=== PATIENT | female | born 1955 | race African-American/Black ===

== ENCOUNTER 2020-04-26 21:47 | Inpatient (IN) | payer MEDICAID ==
[~2020-04-26] VITALS: Ht 167.6 cm; Wt 76.2 kg
[2020-04-26] MEDS ORDERED: KETOROLAC 30MG/ML VIAL IV STA (22:41)
[2020-04-26] MEDS ORDERED: SODIUM CHLORIDE 0.9% 1,000 ML IV ONE (22:41)
[2020-04-26] MEDS ORDERED: ONDANSETRON HCL 4MG/2ML INJ IV STA (22:41)
[2020-04-26 23:26] LABS: CHLORIDE 99 mEq/L (98-107)
[2020-04-26 23:27] LABS: HEMATOCRIT. 38.9 % (36.0-48.0); HEMOGLOBIN. 12.8 g/dL (12.0-16.0); MEAN CORPUSCULAR HEMOGLOBIN 29.4 pg (28.0-32.0); MEAN CORPUSCULAR VOLUME 89.5 fL (81.0-99.0); MEAN PLATELET VOLUME 12.5 fl (7.4-10.4); PLATELET 229 x1000/uL (130-400); RED BLOOD CELL COUNT 4.35 mill/uL (4.2-5.4); RED CELL DISTRIBUTION WIDTH 14.5 % (11.6-14.6)
[2020-04-26 23:30] LABS: ETHANOL BLOOD < 10 mg/dL; INR 1.1; PROTHROMBIN TIME 11.2 sec (9.6-11.0)
[2020-04-27] MEDS ORDERED: POTASSIUM CHLORIDE 20MEQ TABLET SR PO ONE (00:30)
[2020-04-27] MEDS ORDERED: POTASSIUM CHLORIDE INJ 40 MEQ in DEXT 5% WATER 500 ML IV ONE (00:30)
[2020-04-27 01:59] LABS: PLATELET ESTIMATE NORMAL
[2020-04-27 06:19] LABS: CLARITY URINE TURBID (CLEAR); COLOR URINE DARK YELLOW (YELLOW); KETONES URINE TRACE (NEGATIVE); LEUKOCYTE ESTERASE URINE 3+ (NEGATIVE); NITRITE URINE NEGATIVE (NEGATIVE); OCCULT BLOOD URINE TRACE (NEGATIVE); PH URINE 5.5 (4.5-8.0); PROTEIN URINE 1+ (NEGATIVE); SPECIFIC GRAVITY URINE 1.014 (1.005-1.030)
[2020-04-27 06:31] LABS: *AMPHETAMINES SCREEN URINE NEGATIVE (NEGATIVE); *BARBITURATES SCREEN URINE NEGATIVE (NEGATIVE); *BENZODIAZEPINES SCREEN URINE NEGATIVE (NEGATIVE); *COCAINE SCREEN URINE NEGATIVE (NEGATIVE); METHADONE URINE SCREEN NEGATIVE (NEGATIVE); OPIATES URINE SCREEN NEGATIVE (NEGATIVE)
[2020-04-27 06:32] LABS: CANNABINOID URINE SCREEN NEGATIVE (NEGATIVE); PHENCYCLIDINE URINE SCREEN NEGATIVE (NEGATIVE)
[2020-04-27 08:00] VITALS: BP 132/74
[2020-04-27 08:30] VITALS: BP 132/74
[2020-04-27] MEDS ORDERED: DIPHENHYDRAMINE 50MG/ML VIAL IV PRN (08:45)
[2020-04-27] MEDS ORDERED: CEFTRIAXONE 1 G PREMIX 50 ML IV SCH (08:45)
[2020-04-27] MEDS ORDERED: ONDANSETRON HCL 4MG/2ML INJ IV PRN (08:45)
[2020-04-27] MEDS ORDERED: IPRATROPIUM/ALBUTEROL 0.5-3(2.5)MG/3ML NEB HHN PRN (08:45)
[2020-04-27] MEDS ORDERED: ACETAMINOPHEN 650MG SUPP PR PRN (08:45)
[2020-04-27] MEDS: CEFTRIAXONE 1,000 MG in DEXTROSE 5% WATER 50 ML IV SCH (10:18)
[2020-04-27] MEDS: MORPHINE SULFATE 2 MG/ML CPJ (NOT FOR IM USE) IV PRN ×2 (10:19→15:54)
[2020-04-27] MEDS: SODIUM CHLORIDE 0.9% 1,000 ML IV SCH ×2 (10:19→23:23)
[2020-04-27 10:43] LABS: PHOSPHORUS 2.3 mg/dL (2.5-4.9)
[2020-04-27 12:00] VITALS: BP 121/83
[2020-04-27] MEDS ORDERED: MAGNESIUM 2 G PREMIX 50 ML IV SCH (12:00)
[2020-04-27] MEDS ORDERED: SORBITOL 70% SOLN 30ML PO SCH ×2 (15:30→20:00)
[2020-04-27] MEDS ORDERED: MAGNESIUM/ALUMINUM HYDROXIDE/SIMETHICONE 30ML UDC PO PRN (15:30)
[2020-04-27 16:00] VITALS: BP 110/71
[2020-04-27] MEDS ORDERED: DEXTROSE 50% WATER 50ML SYRINGE IV PRN (18:15)
[2020-04-27] MEDS: INSULIN LISPRO 100 UNITS/ML SUBCUT SCH ×2 (18:30→20:20)
[2020-04-27] MEDS: BLOOD SUGAR DIAGNOSTIC STRIP TEST SCH ×2 (18:31→20:20)
[2020-04-27 20:00] VITALS: BP 117/63
[2020-04-27 21:18] LABS: TOTAL IRON BINDING CAPACITY 393 ug/dL (250-450)
[2020-04-28] VITALS: BP 141/63
[2020-04-28 04:00] VITALS: BP 119/65
[2020-04-28 06:48] LABS: BASOPHILS % 0.7 % (0.0-2.0); EOSINOPHILS % 0.5 % (0.0-5.0); HEMATOCRIT. 40.9 % (36.0-48.0); HEMOGLOBIN. 13.4 g/dL (12.0-16.0); LYMPHOCYTES % 9.1 % (20.0-50.0); MEAN CORPUSCULAR HEMOGLOBIN 29.3 pg (28.0-32.0); MEAN CORPUSCULAR VOLUME 89.7 fL (81.0-99.0); MEAN PLATELET VOLUME 11.3 fl (7.4-10.4); MONOCYTES % 4.8 % (2.0-8.0); NEUTROPHILS % 84.9 % (40.0-76.0); PLATELET 109 x1000/uL (130-400); RED BLOOD CELL COUNT 4.56 mill/uL (4.2-5.4); RED CELL DISTRIBUTION WIDTH 14.5 % (11.6-14.6)
[2020-04-28] MEDS: BLOOD SUGAR DIAGNOSTIC STRIP TEST SCH ×4 (07:01→21:00)
[2020-04-28 07:50] LABS: CHLORIDE 104 mEq/L (98-107)
[2020-04-28 07:58] LABS: LDL CHOLESTEROL 111 mg/dL (5-100)
[2020-04-28 08:00] VITALS: BP 129/75
[2020-04-28 08:00] LABS: HDL CHOLESTEROL 41 mg/dL (40-59)
[2020-04-28] MEDS ORDERED: NA PHOS,M-B/NA PHOS,DI-BA ENEMA 118ML PR SCH (08:00)
[2020-04-28] MEDS: INSULIN LISPRO 100 UNITS/ML SUBCUT SCH ×4 (08:18→21:01)
[2020-04-28] MEDS ORDERED: POTASSIUM CHLORIDE 20MEQ TABLET SR PO SCH (09:00)
[2020-04-28] MEDS: CEFTRIAXONE 1,000 MG in DEXTROSE 5% WATER 50 ML IV SCH (09:36)
[2020-04-28] MEDS ORDERED: KCL 20MEQ/100ML PREMIX 100 ML IV SCH (10:00)
[2020-04-28] MEDS: SODIUM CHLORIDE 0.9% 1,000 ML IV SCH (11:07)
[2020-04-28 12:00] VITALS: BP 134/62
[2020-04-28] MEDS: IRON SUCROSE COMPLEX 100 MG/5 ML ML IV SCH (14:08)
[2020-04-28] MEDS ORDERED: POTASSIUM PHOS,M-BASIC-D-BASIC 20 MMOL in DEXT 5% WATER 243.3333 ML IV NR (15:00)
[2020-04-28 16:00] VITALS: BP_SYST 147; BP_DIAS 69; BP_DIAS 78
[2020-04-28] MEDS: METOCLOPRAMIDE HCL 10MG/2ML VIAL IV SCH (17:16)
[2020-04-28 17:26] LABS: FERRITIN 726 ng/mL (10-291)
[2020-04-28 18:15] LABS: VITAMIN B12 SERUM 1680 pg/mL (211-911)
[2020-04-28 20:00] VITALS: BP 113/68
[2020-04-29] VITALS: BP 146/84
[2020-04-29 04:00] VITALS: BP 139/81
[2020-04-29] MEDS: METOCLOPRAMIDE HCL 10MG/2ML VIAL IV SCH ×4 (05:03→17:29)
[2020-04-29] MEDS: BLOOD SUGAR DIAGNOSTIC STRIP TEST SCH ×4 (06:48→21:32)
[2020-04-29 06:57] LABS: EOSINOPHILS % 0.9 % (0.0-5.0); HEMOGLOBIN. 11.6 g/dL (12.0-16.0); LYMPHOCYTES % 23.7 % (20.0-50.0); MEAN CORPUSCULAR HEMOGLOBIN 29.1 pg (28.0-32.0); MEAN PLATELET VOLUME 12.2 fl (7.4-10.4); MONOCYTES % 6.4 % (2.0-8.0); PLATELET 197 x1000/uL (130-400); RED BLOOD CELL COUNT 3.98 mill/uL (4.2-5.4); RED CELL DISTRIBUTION WIDTH 14.1 % (11.6-14.6)
[2020-04-29 07:26] LABS: CHLORIDE 104 mEq/L (98-107)
[2020-04-29] MEDS: INSULIN LISPRO 100 UNITS/ML SUBCUT SCH ×4 (07:30→21:59)
[2020-04-29 07:32] LABS: PHOSPHORUS 2.7 mg/dL (2.5-4.9)
[2020-04-29 08:00] VITALS: BP 135/66
[2020-04-29] MEDS ORDERED: POTASSIUM CHLORIDE 20MEQ TABLET SR PO SCH (08:15)
[2020-04-29] MEDS: IRON SUCROSE COMPLEX 100 MG/5 ML ML IV SCH (08:36)
[2020-04-29] MEDS: CEFTRIAXONE 1,000 MG in DEXTROSE 5% WATER 50 ML IV SCH (09:24)
[2020-04-29] MEDS ORDERED: KCL 20MEQ/100ML PREMIX 100 ML IV SCH (10:00)
[2020-04-29 12:00] VITALS: BP 154/71
[2020-04-29] MEDS: SODIUM CHLORIDE 0.9% 1,000 ML IV SCH ×2 (13:43)
[2020-04-29] MEDS ORDERED: MAGNESIUM 4 G PREMIX 100 ML IV NR (15:30)
[2020-04-29 16:00] VITALS: BP 138/80
[2020-04-29] MEDS ORDERED: METOCLOPRAMIDE HCL 5MG TABLET PO PRN (17:45)
[2020-04-29] MEDS: MAGNESIUM OXIDE 400MG TABLET PO SCH (17:59)
[2020-04-29] MEDS: POTASSIUM CHLORIDE 20MEQ/PACKET PO SCH ×2 (18:00→21:32)
[2020-04-29 20:00] VITALS: BP 126/51
[2020-04-30] VITALS: BP_SYST 103; BP_SYST 145; BP_DIAS 58; BP_DIAS 75
[2020-04-30 04:00] VITALS: BP 145/75
[2020-04-30] MEDS: BLOOD SUGAR DIAGNOSTIC STRIP TEST SCH ×4 (07:20→21:00)
[2020-04-30] MEDS: INSULIN LISPRO 100 UNITS/ML SUBCUT SCH ×3 (07:50→17:19)
[2020-04-30 08:00] VITALS: BP 134/78
[2020-04-30] MEDS: MAGNESIUM OXIDE 400MG TABLET PO SCH ×2 (08:25→16:45)
[2020-04-30] MEDS ORDERED: SODIUM BICARBONATE 4% (2.4MEQ) 5ML VIAL IV ONE (08:46)
[2020-04-30] MEDS ORDERED: LIDOCAINE HCL 1% 20ML VIAL (Pyxis) INJ ONE (08:46)
[2020-04-30 09:09] LABS: FOLATE HEMATOCRIT 35.3 % (34.0-46.6)
[2020-04-30] MEDS: CEFTRIAXONE 1,000 MG in DEXTROSE 5% WATER 50 ML IV SCH (10:19)
[2020-04-30 12:00] VITALS: BP 109/70
[2020-04-30 13:00] LABS: EOSINOPHILS % 0.5 % (0.0-5.0); HEMATOCRIT. 34.9 % (36.0-48.0); HEMOGLOBIN. 11.3 g/dL (12.0-16.0); LYMPHOCYTES % 20.7 % (20.0-50.0); MEAN CORPUSCULAR VOLUME 89.1 fL (81.0-99.0); MEAN PLATELET VOLUME 12.6 fl (7.4-10.4); MONOCYTES % 6.4 % (2.0-8.0); NEUTROPHILS % 71.4 % (40.0-76.0); PLATELET 269 x1000/uL (130-400); RED BLOOD CELL COUNT 3.91 mill/uL (4.2-5.4); RED CELL DISTRIBUTION WIDTH 14.2 % (11.6-14.6)
[2020-04-30 13:23] LABS: PHOSPHORUS 1.7 mg/dL (2.5-4.9)
[2020-04-30] MEDS ORDERED: METOCLOPRAMIDE HCL 10MG/2ML VIAL IV PRN (14:00)
[2020-04-30] MEDS ORDERED: POTASSIUM CHLORIDE 20MEQ TABLET SR PO NR (14:00)
[2020-04-30] MEDS ORDERED: MAGNESIUM 4 G PREMIX 100 ML IV NR (14:30)
[2020-04-30] MEDS ORDERED: POTASSIUM PHOS,M-BASIC-D-BASIC 20 MMOL in DEXT 5% WATER 243.3333 ML IV NR (15:00)
[2020-04-30] MEDS: SODIUM CHLORIDE 0.9% 1,000 ML IV SCH (15:14)
[2020-04-30 16:00] VITALS: BP 124/73
[2020-04-30 20:00] VITALS: BP 149/101
[2020-04-30] MEDS: CLONIDINE 0.1MG TABLET PO PRN (22:42)
[2020-05-01] VITALS: BP 156/92
[2020-05-01 04:00] VITALS: BP 188/88
[2020-05-01] MEDS: CLONIDINE 0.1MG TABLET PO PRN (04:55)
[2020-05-01] MEDS: BLOOD SUGAR DIAGNOSTIC STRIP TEST SCH ×4 (06:34→21:36)
[2020-05-01 08:00] VITALS: BP 107/63
[2020-05-01] MEDS: MAGNESIUM OXIDE 400MG TABLET PO SCH ×2 (08:34→17:01)
[2020-05-01] MEDS: SODIUM CHLORIDE 0.9% 1,000 ML IV SCH ×2 (08:35→21:56)
[2020-05-01] MEDS: INSULIN LISPRO 100 UNITS/ML SUBCUT SCH ×4 (08:43→21:00)
[2020-05-01 09:23] LABS: BASOPHILS % 0.4 % (0.0-2.0); EOSINOPHILS % 0.9 % (0.0-5.0); HEMATOCRIT. 30.4 % (36.0-48.0); HEMOGLOBIN. 10.1 g/dL (12.0-16.0); LYMPHOCYTES % 18.8 % (20.0-50.0); MEAN CORPUSCULAR HEMOGLOBIN 29.3 pg (28.0-32.0); MEAN CORPUSCULAR VOLUME 88.8 fL (81.0-99.0); MEAN PLATELET VOLUME 12.6 fl (7.4-10.4); NEUTROPHILS % 71.9 % (40.0-76.0); PLATELET 215 x1000/uL (130-400); RED BLOOD CELL COUNT 3.43 mill/uL (4.2-5.4); RED CELL DISTRIBUTION WIDTH 14.2 % (11.6-14.6)
[2020-05-01] MEDS: CEFTRIAXONE 1,000 MG in DEXTROSE 5% WATER 50 ML IV SCH (09:51)
[2020-05-01 09:56] LABS: CHLORIDE 106 mEq/L (98-107)
[2020-05-01 10:06] LABS: FOLATE RBC 697 ng/mL (>498)
[2020-05-01] MEDS ORDERED: POTASSIUM CHLORIDE 20MEQ/PACKET PO NR (10:45)
[2020-05-01 12:00] VITALS: BP 121/61
[2020-05-01] MEDS ORDERED: POTASSIUM CHLORIDE INJ 40 MEQ in DEXT 5% WATER 500 ML IV ONE (12:00)
[2020-05-01 16:00] VITALS: BP 123/86
[2020-05-01 20:00] VITALS: BP 136/70
[2020-05-02] VITALS (7 sets, daily range): BP systolic 111–144; BP diastolic 60–82
[2020-05-02] MEDS: BLOOD SUGAR DIAGNOSTIC STRIP TEST SCH ×4 (06:33→21:51)
[2020-05-02] MEDS: MAGNESIUM OXIDE 400MG TABLET PO SCH ×2 (08:31→16:16)
[2020-05-02] MEDS: INSULIN LISPRO 100 UNITS/ML SUBCUT SCH ×4 (08:32→21:00)
[2020-05-02] MEDS: SODIUM CHLORIDE 0.9% 1,000 ML IV SCH ×2 (08:32→22:20)
[2020-05-02] MEDS: CEFTRIAXONE 1,000 MG in DEXTROSE 5% WATER 50 ML IV SCH (09:49)
[2020-05-02 11:17] LABS: EOSINOPHILS % 1.4 % (0.0-5.0); HEMATOCRIT. 25.3 % (36.0-48.0); HEMOGLOBIN. 8.5 g/dL (12.0-16.0); LYMPHOCYTES % 19.8 % (20.0-50.0); MEAN CORPUSCULAR HEMOGLOBIN 29.9 pg (28.0-32.0); MEAN CORPUSCULAR VOLUME 88.8 fL (81.0-99.0); MEAN PLATELET VOLUME 11.2 fl (7.4-10.4); MONOCYTES % 8.5 % (2.0-8.0); NEUTROPHILS % 69.3 % (40.0-76.0); PLATELET 182 x1000/uL (130-400); RED BLOOD CELL COUNT 2.85 mill/uL (4.2-5.4); RED CELL DISTRIBUTION WIDTH 14.2 % (11.6-14.6)
[2020-05-02 11:35] LABS: CHLORIDE 108 mEq/L (98-107)
[2020-05-02] MEDS ORDERED: POTASSIUM CHLORIDE 20MEQ TABLET SR PO NR (12:30)
[2020-05-02] MEDS ORDERED: POTASSIUM CHLORIDE INJ 40 MEQ in DEXT 5% WATER 500 ML IV SCH ×2 (14:00→18:00)
[2020-05-02] MEDS ORDERED: DIPHENOXYLATE/ATROPINE 2.5/0.025MG TABLET PO PRN (16:30)
[2020-05-02] MEDS: DICYCLOMINE HCL 10MG CAPSULE PO SCH ×3 (16:34→23:12)
[2020-05-03] VITALS: BP 151/72
[2020-05-03 04:00] VITALS: BP 126/80
[2020-05-03 06:25] LABS: CHLORIDE 109 mEq/L (98-107)
[2020-05-03] MEDS: DICYCLOMINE HCL 10MG CAPSULE PO SCH ×3 (06:30→18:31)
[2020-05-03 06:32] LABS: BASOPHILS % 0.5 % (0.0-2.0); EOSINOPHILS % 1.9 % (0.0-5.0); HEMOGLOBIN. 8.7 g/dL (12.0-16.0); LYMPHOCYTES % 31.5 % (20.0-50.0); MEAN CORPUSCULAR HEMOGLOBIN 28.5 pg (28.0-32.0); MEAN CORPUSCULAR VOLUME 87.9 fL (81.0-99.0); MEAN PLATELET VOLUME 12.3 fl (7.4-10.4); MONOCYTES % 12.8 % (2.0-8.0); NEUTROPHILS % 53.3 % (40.0-76.0); PLATELET 172 x1000/uL (130-400); RED BLOOD CELL COUNT 3.07 mill/uL (4.2-5.4); RED CELL DISTRIBUTION WIDTH 14.2 % (11.6-14.6)
[2020-05-03] MEDS: BLOOD SUGAR DIAGNOSTIC STRIP TEST SCH ×4 (07:20→20:49)
[2020-05-03] MEDS: INSULIN LISPRO 100 UNITS/ML SUBCUT SCH ×4 (07:50→20:55)
[2020-05-03 08:00] VITALS: BP 154/86
[2020-05-03] MEDS ORDERED: POTASSIUM CHLORIDE 20MEQ/PACKET PO NR (09:15)
[2020-05-03] MEDS: MAGNESIUM OXIDE 400MG TABLET PO SCH ×2 (09:38→18:31)
[2020-05-03] MEDS ORDERED: POTASSIUM CHLORIDE INJ 40 MEQ in DEXT 5% WATER 500 ML IV NR (11:00)
[2020-05-03 12:00] VITALS: BP 154/84
[2020-05-03 16:00] VITALS: BP 140/50
[2020-05-03 20:00] VITALS: BP 134/67
[2020-05-04] VITALS: BP 145/82
[2020-05-04] MEDS: DICYCLOMINE HCL 10MG CAPSULE PO SCH ×3 (00:13→11:29)
[2020-05-04] MEDS: SODIUM CHLORIDE 0.9% 1,000 ML IV SCH (00:15)
[2020-05-04 04:00] VITALS: BP 140/80
[2020-05-04] MEDS: BLOOD SUGAR DIAGNOSTIC STRIP TEST SCH ×2 (07:20→11:34)
[2020-05-04 08:00] VITALS: BP 131/72
[2020-05-04] MEDS: MAGNESIUM OXIDE 400MG TABLET PO SCH (08:49)
[2020-05-04] MEDS: INSULIN LISPRO 100 UNITS/ML SUBCUT SCH ×2 (09:09→12:34)
[2020-05-04 11:22] LABS: CHLORIDE 109 mEq/L (98-107)
[2020-05-04 11:34] LABS: BASOPHILS % 0.8 % (0.0-2.0); HEMATOCRIT. 25.5 % (36.0-48.0); HEMOGLOBIN. 8.5 g/dL (12.0-16.0); LYMPHOCYTES % 25.6 % (20.0-50.0); MEAN CORPUSCULAR HEMOGLOBIN 29.4 pg (28.0-32.0); MEAN CORPUSCULAR VOLUME 88.5 fL (81.0-99.0); MONOCYTES % 9.7 % (2.0-8.0); NEUTROPHILS % 62.9 % (40.0-76.0); PLATELET 191 x1000/uL (130-400); RED BLOOD CELL COUNT 2.88 mill/uL (4.2-5.4); RED CELL DISTRIBUTION WIDTH 14.4 % (11.6-14.6)
[2020-05-04 12:00] VITALS: BP 138/79
[2020-05-04] MEDS ORDERED: POTASSIUM CHLORIDE 20MEQ TABLET SR PO NR (13:00)
[2020-05-04] MEDS ORDERED: DIPH1TAB MT (13:14)
[2020-05-04] MEDS ORDERED: PSYL575P22 MT (13:14)
[2020-05-04] MEDS ORDERED: MAGN400T26 MT (13:14)
[2020-05-04] MEDS ORDERED: ATOR20TA65 MT (13:14)
[2020-05-04] MEDS ORDERED: POTA20TA82 MT (13:14)
[2020-05-04 14:49] VITALS: BP_SYST 126; BP_SYST 138; BP_DIAS 79; BP_DIAS 88
[2020-05-04] MEDS ORDERED: KCL 20MEQ/100ML PREMIX 100 ML IV NR (15:00)
[2020-05-04 16:00] VITALS: BP 126/88
[2020-05-06 04:07] LABS: OVA & PARASITE EXAM Final report (.)
== END 2020-05-04 17:50 | disposition home or self-care (01) | DRG 48 ==
LOC: ER 22:15 → 6EST 04-27 01:32 → ENRESERV 04-27 07:01
PROVIDERS: ADMIT Internal Medicine; ATTEND Internal Medicine
PROC: 02HV33Z Insertion of Infusion Device into Superior Vena Cava, Percutaneous Approach (ICD-10-PCS; principal; 2020-05-01)
PROC: B518ZZA Fluoroscopy of Superior Vena Cava, Guidance (ICD-10-PCS; 2020-05-01)
PROC: B548ZZA Ultrasonography of Superior Vena Cava, Guidance (ICD-10-PCS; 2020-05-01)
DX: E11.43 Type 2 diabetes mellitus with diabetic autonomic (poly)neuropathy (principal); K52.9 Noninfective gastroenteritis and colitis, unspecified; N39.0 Urinary tract infection, site not specified; K59.00 Constipation, unspecified; N20.0 Calculus of kidney; K57.30 Diverticulosis of large intestine without perforation or abscess without bleeding; D64.9 Anemia, unspecified; E83.42 Hypomagnesemia; E86.0 Dehydration; E87.6 Hypokalemia; I10 Essential (primary) hypertension; I25.10 Atherosclerotic heart disease of native coronary artery without angina pectoris; E83.39 Other disorders of phosphorus metabolism; N17.0 Acute kidney failure with tubular necrosis; E44.0 Moderate protein-calorie malnutrition; K31.84 Gastroparesis; E27.8 Other specified disorders of adrenal gland; K76.0 Fatty (change of) liver, not elsewhere classified; R79.89 Other specified abnormal findings of blood chemistry; Z87.891 Personal history of nicotine dependence; Z95.1 Presence of aortocoronary bypass graft; Z68.27 Body mass index [BMI] 27.0-27.9, adult
CPT/HCPCS: 36415; 36573; 74018; 74176; 76937; 80048; 80053; 80061; 80305; 80320; 81003; 82270; 82607; 82728; 82747; 82962; 83036; 83540; 83550; 83735; 84100; 84132; 84145; 84443; 85014; 85025; 87015; 87045; 87177; 87209; 87427; 87449; 87493; 89055; 93005; 93970; 99285; C1725; J0696; J1815; J1885; J2270; J2405; J2765; J3475; J3480; J3490; J7030; J7060; G0480